=== PATIENT | male | born 1950 | race Caucasian/White ===

== ENCOUNTER → 2016-04-21 | Outpatient (CLI) | payer MEDICARE, MEDICAID ==
[~2016-04-21] MED LIST: ALLOPURINOL100 MG PO; AMLO5TAB PO; ATORVASTATIN CA40 MG PO; BENADRYL ALLERG25 M3 PO; FOLTX PO; FUROSEMIDE 20MG20 MG PO; HYDROCHLOROTHIA1 TA2 PO; NAPROXEN500 M1 PO; NYSTATIN SU60 ML/BOT PO; OMEPRAZOLE40 MG PO
== END ==
LOC: RAD 13:01
DX: R60.0 Localized edema (principal)

== ENCOUNTER → 2017-03-09 | Outpatient (CLI) | payer MEDICARE, MEDICAID ==
--- NOTE | 2017-03-10 12:52 | RADIOLOGY REPORT PS360 ---
EXAM: CT LUNG LOW DOSE WO CONTRAST COMPARISON: None no previous CT chest HISTORY: 2 packs per day for 40 years equal 80 pack-year. Quit smoking 4 years ago RADIATION DOSE: CTDI vol(CT dose Index-volume) = 2.95mGy DLP (Dose Length Product) = 116.54 mGy-cm FINDINGS: No significant lung nodules or masses. Only benign calcified granulomatous nodules observed. . Benign nodules(Category1) : small benign calcified granulomas right midlung 6 mm mm with a 10 mm granuloma well as small 4 mm mm granuloma more inferiorly right base right base. LUNG PARENCHYMA Emphysema: Mild centrilobular emphysematous changes Airways disease: borderline airway thickening . OTHER ANATOMIC REGIONS Lymph Nodes: No enlarged lymph nodes evident. 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 Pleura: Unremarkable Cardiac: Coronary artery calcification-most pronounced at the LAD. Followed by right coronary and circumflex. . Upper abdomen unremarkable. Adrenals unremarkable.. IMPRESSION: ...... 1. NO SIGNIFICANT LUNG NODULES OR LESIONS. Lung RADS Category 1 Only benign granulomatous nodules bilaterally. With associated calcified hilar nodes. 2. Prominent coronary artery calcification. 3. Minor chronic changes with scant early emphysematous changes RECOMMENDATIONS: 12 monthd LDCT follow-up TECHNIQUE: The exam was performed on a GE Light Speed [address] scanner using 3.0 mGy CTDI. A low dose helical CT CHEST was performed on a multi-detector scanner The LDCT was performed in a facility that meets the criteria for the screening program. Data regarding this exam was submitted to [employer] which is an approved registry. The order for this exam indicates that it came as a result of a lung cancer screening counseling shard decision-making visit that included all the elements required of such a visit including smoking cessation. The radiologist interpreting this exam meets the CMS criteria for the LDCT lung cancer screening program. The exam is reported using the Lung-RADS classification scale and reported to the [employer]CR registry. NOTE: This study was performed for the specific purposes of lung cancer screening and is not an alternative to diagnostic chest CT.
== END ==
LOC: RAD 14:47
DX: Z87.891 Personal history of nicotine dependence (principal); Z12.2 Encounter for screening for malignant neoplasm of respiratory organs; Z72.0 Tobacco use
CPT/HCPCS: G0297

== ENCOUNTER → 2017-03-12 | Outpatient (CLI) | payer MEDICARE, MEDICAID ==
[2017-03-12 10:05] LABS: STOOL OCCULT BLOOD NEGATIVE (NEG)
== END ==
LOC: LAB 09:46
PROVIDERS: Physician Assistant
DX: K92.1 Melena (principal)
CPT/HCPCS: G0328

== ENCOUNTER → 2017-03-23 | Outpatient (CLI) | payer MEDICARE, MEDICAID ==
--- NOTE | 2017-03-26 14:57 | RADIOLOGY REPORT PS360 ---
History and Indications: Coronary artery disease, hypertension, tobacco use, Procedure: Patient received 0.4 mg of Lexiscan, resting heart rate was 56 bpm, resting blood pressure 130/76, intravenous Lexiscan maximum heart rate achieved 78 bpm which is less than 85% of the maximum heart rate and a blood pressure 146/82. With Lexiscan patient complained of shortness of breath and lightheadedness Electrocardiogram: Sinus bradycardia right ventricular conduction delay, possible inferior infarct age indeterminate, with Lexiscan there is less than 1.[address] segment depression in the baseline EKG, occasional premature ventricular complexes seen. The EKG portion of the Lexiscan is nondiagnostic. Cardiac stress and resting SPECT images: Cardiac stress and rest SPECT images were obtained using technetium 99 Myoview 10.1 mCi at rest and 31.2 mCi at stress, gated SPECT further analysis of segmental wall motion and calculation of ejection fraction also done. Cardiac stress and rest SPECT images show decreased tracer activity in the infero apical wall which improves on the resting images suggestive of reversible that area. There are ejection fraction 53% with no obvious regional wall motion abnormality, right ventricle is mildly normal contractility. Conclusion: 1. The EKG portion of the Lexiscan Myoview is nondiagnostic. 2. Scintigraphic evidence of mild reversible ischemia involving the infero apical wall. Computer derived ejection fraction is 53% with no obvious regional wall motion abnormality, right ventricle is mildly enlarged with normal contractility. 3. Abnormal Lexiscan Myoview study.
== END ==
LOC: RAD 07:14
DX: I25.10 Atherosclerotic heart disease of native coronary artery without angina pectoris (principal)
CPT/HCPCS: A9502; J2785